=== PATIENT | male | born 1955 | race Caucasian/White ===

== ENCOUNTER → 2016-08-18 | Outpatient (CLI) | payer MEDICARE ==
[~2016-08-18] MED LIST: AMLO10TA2 PO; ARTI99.0 OU; ASPI1TAB PO; BACI500O8 TOP; BLOOKIT XX; CALTTAB5 PO; CLOB0.0548 TOP; ISOS60TA2 PO; KELP100T PO; LANTINJ4 SC; LASI20TA PO; LISI-538 PO; NEO-0.25; NEUR300C PO; OCUVCAP2 PO; POTA10CA PO; VITA400C2 PO; [UNRECOGNIZED DRUG - CODE] TOP
[2016-08-18 11:39] LABS: ALBUMIN/GLOBULIN RATIO 1.07 (1.00-1.93); BILIRUBIN,TOTAL 0.3 MG/DL (0.2-1.0); CALCIUM LEVEL 7.7 MG/DL (8.8-10.2); CREATININE FOR GFR 1.84 MG/DL (0.70-1.30); GLOMERULAR FILTRATION RATE 40.1 (>49); POTASSIUM SERUM 4.2 MEQ/L (3.5-5.1); TOTAL PROTEIN 5.8 GM/DL (6.4-8.2)
--- NOTE | 2016-08-18 14:44 | REP ---
Three-view left knee to include AP lateral and sunrise views 08/18/2016 Indication: Pain The joint spaces are well maintained. There is no acute fracture, subluxation, or dislocation, and no evidence of joint effusion. There is a small spur at the quadriceps tendinous insertion on the patella. Impression: No acute fracture. Small spur at the quadriceps tendinous insertion on the patella. Signed by Lucila Lacey MD 08/18/2016 02:36 P
== END ==
LOC: M LAB 10:50
PROVIDERS: ATTEND Family Medicine Addiction Medicine
DX: M25.562 Pain in left knee (principal)

== ENCOUNTER → 2016-09-16 | Outpatient (CLI) | payer MEDICARE ==
--- NOTE | 2016-09-18 06:32 | SLEEPCENT ---
DATE OF PROCEDURE: 09/16/2016 ORDERED BY: Yohana Soares Nocturnal polysomnography was performed due to concern for the obstructive sleep apnea syndrome in this patient with a history of excessive somnolence and comorbidities of hypertension and diabetes. 8 hours and 50 minutes of data were reviewed. There were 326 minutes of sleep identified. Sleep latency was normal at 8 minutes. Rapid eye movement (REM) latency was normal at 74 minutes. Sleep architecture showed fragmentation. Reasonable sleep progression occurred with 4 REM periods. Overall sleep efficiency was 70%. The patient's electrocardiogram (EKG) showed a sinus rhythm with an average heart rate of 64 beats per minute. Heart rate variability was seen surrounding respiratory events. Rate ranged 58 to 78. Electroencephalogram (EEG) showed normal waveforms for awake and for sleep stages. There were no focal events identified. There were 142 respiratory events identified of 10 seconds in duration or greater for an apnea-hypopnea index of 23.2. The events were primarily obstructive, not exclusive to sleep stage nor body posture. Arousals from respiratory events occurred 20.4 times per hour and oxygen desaturations were seen into the upper 70s. There was some limb activity, but no arousals from limb events were noted. Remaining measures of sleep physiology were normal. IMPRESSION: Obstructive sleep apnea syndrome (G47.33), apnea-hypopnea index 23.2. RECOMMENDATION: The patient should be encouraged to return to the sleep disorder center for pressure therapy. In the interim, alcohol and sedative avoidance should be practiced and caution exercised during the operation of motor vehicles.
== END ==
LOC: M SLEEP 18:26
PROVIDERS: ATTEND Nurse Practitioner Adult Health
DX: G47.30 Sleep apnea, unspecified (principal)

== ENCOUNTER → 2016-09-24 | Outpatient (CLI) | payer MEDICARE ==
[2016-09-24 13:46] LABS: ALBUMIN 3.1 GM/DL (3.2-5.2); ALBUMIN/GLOBULIN RATIO 0.97 (1.00-1.93); BILIRUBIN,TOTAL 0.3 MG/DL (0.2-1.0); CALCIUM LEVEL 8.1 MG/DL (8.8-10.2); CREATININE FOR GFR 2.11 MG/DL (0.70-1.30); GLOMERULAR FILTRATION RATE 34.3 (>49); POTASSIUM SERUM 4.6 MEQ/L (3.5-5.1); TOTAL PROTEIN 6.3 GM/DL (6.4-8.2)
== END ==
LOC: M LAB 12:05
PROVIDERS: ATTEND Family Medicine Addiction Medicine
DX: N18.9 Chronic kidney disease, unspecified (principal)

== ENCOUNTER → 2016-10-11 | Outpatient (CLI) | payer MEDICARE ==
[~2016-10-11] MED LIST changes: +METO-209 PO
== END ==
LOC: M SLEEP 19:45
PROVIDERS: ATTEND Nurse Practitioner Adult Health
DX: G47.33 Obstructive sleep apnea (adult) (pediatric) (principal)

== ENCOUNTER 2016-10-13 13:32 | Emergency (ER) | payer MEDICARE ==
[~2016-10-13] VITALS: Ht 172.7 cm; Wt 95.7 kg
[~2016-10-13 13:32] MED LIST changes: -METO-209 PO
[2016-10-13] MEDS ORDERED: ASPIRIN 81 MG CHEW TABLET PO ONE (14:00)
[2016-10-13] MEDS ORDERED: METO-209 PO (14:02)
[2016-10-13 14:26] LABS: BASO % 0.6 % (0.0-1.0); EOS # 0.1 K/mm3 (0.0-0.50); EOS % 2.2 % (0.0-3.0); LARGE UNSTAINED CELL # 0.1 K/mm3 (0.0-0.4); LARGE UNSTAINED CELL % 1.7 % (0.0-4.0); LYMPH # 1.7 K/mm3 (1.5-4.5); LYMPH % 29.3 % (24.0-44.0); MEAN CORPUSCULAR HEMOGLOBIN 27.6 pg (27.0-33.0); MEAN CORPUSCULAR HGB CONC 34.2 g/dl (32.0-36.5); MEAN CORPUSCULAR VOLUME 80.6 fl (80.0-96.0); MONO # 0.3 K/mm3 (0.0-0.8); MONO % 5.9 % (0.0-5.0); NEUTROPHILS # 3.3 K/mm3 (1.8-7.7); NEUTROPHILS % 60.2 % (36.0-66.0); PLATELET COUNT, AUTOMATED 155 k/mm3 (150-450); RED CELL DISTRIBUTION WIDTH 14.5 % (11.5-14.5); WHITE BLOOD COUNT 5.5 K/mm3 (4.0-10.0)
[2016-10-13 15:04] LABS: ANION GAP 8 MEQ/L (8-16); BLOOD UREA NITROGEN 26 MG/DL (7-18); CALCIUM LEVEL 7.6 MG/DL (8.8-10.2); CARBON DIOXIDE LEVEL 26 MEQ/L (21-32); CHLORIDE LEVEL 105 MEQ/L (98-107); CREATININE FOR GFR 1.98 MG/DL (0.70-1.30); GLOMERULAR FILTRATION RATE 36.9 (>49); GLUCOSE, FASTING 393 MG/DL (80-110); POTASSIUM SERUM 4.7 MEQ/L (3.5-5.1); SODIUM LEVEL 139 MEQ/L (136-145)
--- NOTE | 2016-10-13 15:04 | REP ---
PORTABLE CHEST X-RAY: SINGLE VIEW. HISTORY: Chest pain. COMPARISON STUDY: June 28, 2016 FINDINGS: EKG monitoring electrodes overlie the chest. The lungs are well inflated and clear. The pleural angles are sharp. Heart size is normal. The aorta is slightly tortuous as before. Pulmonary vasculature is not increased. IMPRESSION: No active disease. Signed by Berto Mohr MD 10/13/2016 03:22 P
[2016-10-13 16:58] VITALS: BP 195/97
--- NOTE | 2016-10-14 11:03 | ECGEPIP ---
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
== END 2016-10-13 17:02 | disposition home or self-care (01) ==
LOC: M ED 16:07
DX: R07.9 Chest pain, unspecified (principal)

== ENCOUNTER → 2016-10-23 | Outpatient (REF) | payer MEDICARE ==
[~2016-10-23] MED LIST changes: +METO-209 PO
[2016-10-23 14:24] LABS: RBC, URINE 0-1 /hpf (0-3); SQUAMOUS EPITHELIAL CELL URINE SMALL AMOUNT /hpf (SMALL AMT)
[2016-10-23 14:25] LABS: BACTERIA, URINE SMALL AMOUNT
[2016-10-23 14:26] LABS: MICROSCOPIC EXAM PERFORMED
[2016-10-23 14:37] LABS: PERCENT SATURATION 9.2 % (19.7-37.4)
== END ==
LOC: M LAB REF 13:03
PROVIDERS: ATTEND Internal Medicine Nephrology
DX: R80.9 Proteinuria, unspecified (principal); D64.9 Anemia, unspecified

== ENCOUNTER 2017-01-06 12:52 | Inpatient (IN) | payer OTHER, MEDICARE ==
[2017-01-06] VITALS (11 sets, daily range): BP systolic 129–166; BP diastolic 65–91
[~2017-01-06] VITALS: Ht 172.7 cm; Wt 94.5 kg
[2017-01-06] MEDS ORDERED: FLOM5CAP PO (13:09)
[2017-01-06] MEDS ORDERED: CHLO125TA PO (13:09)
[2017-01-06] MEDS ORDERED: CLOP75TA2 PO (13:09)
[2017-01-06] MEDS ORDERED: ATOR1TAB21 PO (13:09)
[2017-01-06 13:41] LABS: BASO % 0.4 % (0.0-1.0); EOS # 0.2 K/mm3 (0.0-0.50); EOS % 2.1 % (0.0-3.0); LARGE UNSTAINED CELL # 0.1 K/mm3 (0.0-0.4); LARGE UNSTAINED CELL % 1.5 % (0.0-4.0); LYMPH # 1.4 K/mm3 (1.5-4.5); MEAN CORPUSCULAR HEMOGLOBIN 27.2 pg (27.0-33.0); MEAN CORPUSCULAR HGB CONC 33.4 g/dl (32.0-36.5); MEAN CORPUSCULAR VOLUME 81.5 fl (80.0-96.0); MONO # 0.3 K/mm3 (0.0-0.8); MONO % 4.4 % (0.0-5.0); NEUTROPHILS # 5.2 K/mm3 (1.8-7.7); NEUTROPHILS % 72.5 % (36.0-66.0); PLATELET COUNT, AUTOMATED 222 k/mm3 (150-450); RED CELL DISTRIBUTION WIDTH 13.7 % (11.5-14.5); WHITE BLOOD COUNT 7.1 K/mm3 (4.0-10.0)
[2017-01-06 14:01] LABS: ALBUMIN 3.1 GM/DL (3.2-5.2); ALBUMIN/GLOBULIN RATIO 0.79 (1.00-1.93); ALKALINE PHOSPHATASE 90 U/L (45-117); ALT/SGPT 21 U/L (12-78); ANION GAP 5 MEQ/L (8-16); AST/SGOT 14 U/L (15-37); BILIRUBIN,DIRECT < 0.1 MG/DL (0.0-0.2); BILIRUBIN,TOTAL 0.5 MG/DL (0.2-1.0); BLOOD UREA NITROGEN 31 MG/DL (7-18); CALCIUM LEVEL 8.8 MG/DL (8.8-10.2); CARBON DIOXIDE LEVEL 30 MEQ/L (21-32); CHLORIDE LEVEL 100 MEQ/L (98-107); CREATININE FOR GFR 2.55 MG/DL (0.70-1.30); GLOMERULAR FILTRATION RATE 27.5 (>49); GLUCOSE, FASTING 319 MG/DL (80-110); POTASSIUM SERUM 4.5 MEQ/L (3.5-5.1); SODIUM LEVEL 135 MEQ/L (136-145)
--- NOTE | 2017-01-06 14:07 | REP ---
Chest one-view HISTORY: Chest pain Comparison: 10/13/2016 The lungs are clear. The heart is normal in size. The pulmonary vasculature is normal in appearance. Impression: No acute disease. Signed by Beto Xiao MD 01/06/2017 01:58 P
[2017-01-06 14:23] LABS: FERRITIN 6 NG/ML (26-388); PERCENT SATURATION 4.7 % (19.7-37.4); TOTAL IRON BINDING CAPACITY 467 UG/DL (250-450)
[2017-01-06] MEDS ORDERED: NS 1,000 ML IV SCH (15:26)
[2017-01-06] MEDS ORDERED: ONDANSETRON 4 MG TAB (S0181) PO PRN (15:30)
[2017-01-06] MEDS ORDERED: GLUCAGON FOR INJ 1 MG VIAL (J1610) SC PRN (15:30)
[2017-01-06] MEDS ORDERED: PERCOCET 5MG/325MG TAB PO PRN (15:30)
[2017-01-06] MEDS ORDERED: DEXTROSE 50% 50 ML SYRINGE IV PRN (15:30)
[2017-01-06] MEDS ORDERED: ACETAMINOPHEN TAB 650MG DOSE (2X325MG) PO PRN (15:30)
[2017-01-06] MEDS ORDERED: ONDANSETRON 4MG/2ML VIAL (J2405) IV PRN (15:30)
[2017-01-06] MEDS ORDERED: GLUCOSE 4 GM CHEW TABLET PO PRN (15:30)
[2017-01-06] MEDS ORDERED: NITR4TASL SL (15:51)
[2017-01-06] MEDS ORDERED: METO-207 PO (15:51)
[2017-01-06] MEDS ORDERED: INSULANT SC (15:51)
[2017-01-06 16:04] LABS: INR 1.03
--- NOTE | 2017-01-06 17:29 | HPEPDOC ---
Medical History and Physical Date of Admission January 06, 2017 at 15:26 History and Physical HISTORY AND PHYSICAL Date of admission: 01/06/2017 PCP: [facility] Administration Chief complaint: Taking a deep breath makes me feel strain and heaviness in my chest all the way from my throat down to my belly HPI: 61-year-old male with obesity, coronary artery disease status post recent drug-eluting stents, CK D stage III, diabetes mellitus type 2 with neuropathy, lung nodules who presents to the emergency department because he feels a strain and a heaviness in his entire thoracic and abdominal cavity when he takes a deep breath. He states that this actually began in June, but it's been getting worse. He states that he had 2 drug-eluting stents placed at [facility] in November, and since then, many uncomfortable symptoms including dyspnea on exertion and fatigue have improved. However, this has not improved. He states that he does not currently have any pressure in his chest. He also denies seeing any blood. In the emergency department, he is noted to be anemic, but a guaiac test is negative. He states that he thinks his last colonoscopy was in 2009, and he remembers that they found hemorrhoids, but he is unsure if they found anything else. Past medical history: obesity, coronary artery disease status post recent drug- eluting stents, CK D stage III, diabetes mellitus type 2 with neuropathy, lung nodules Past surgical history: Hernia repair, hydrocele repair, bilateral corneal lens implantations, recent drug-eluting stents placed in November 2016 Family history: Diabetes mellitus, coronary artery disease, hypertension Social history: Patient currently drinks 1-2 alcoholic beverages weekly. He denies any drug or tobacco use. Allergies: Generic gabapentin, gemfibrozil, lisinopril, metformin Review of systems: General: Positive for chills, negative for fever Eyes: Positive for blurry vision when he eats, negative for ocular discharge ENT: Negative for sore throat and nose. Cardiovascular: Negative for chest pain currently, as well as palpitations. He does report the above-mentioned strain and heaviness in his chest and abdomen when he takes deep breaths Respiratory: Positive for cough and shortness of breath GI: Negative for nausea, vomiting. Positive for diarrhea. Negative for any blood in the stool. Musculoskeletal: Positive for neck and back pain Skin: Negative For rash Neuro: Negative for headache. Positive for dizziness when he takes his nightly metoprolol. Positive for chronic numbness and tingling associated with his neuropathy. Psych: Negative for depression and suicidal ideation Endocrine: Positive for polyuria : Negative For dysuria Heme: Negative for bleeding Home meds: See below Physical exam: Vital signs: Vital Sign - Last 24 Hours 01/06/17 01/06/17 01/06/17 01/06/17 12:52 13:51 16:00 16:14 Temp 98.6 97.2 97.7 Pulse 83 75 65 Resp 20 18 18 B/P (MAP) 105/69 (81) 152/91 (111) 140/75 (96) Pulse Ox 100 98 98 O2 Delivery Room Air Room Air Room Air Gen.: awake, alert, no acute distress, very pale Eyes: Extraocular movements intact, normal sclera ENT: Moist mucous membranes Cardiovascular: RRR, no murmurs rubs or gallops Lungs: clear to auscultation bilaterally, no rales, rhonchi, or wheeze Abdomen: Soft, NT/ND, normal BS Musculoskeletal: normal range of motion Extremities: No peripheral edema Neuro: alert and oriented 3, normal speech, no focal deficits Psych: Normal mood with congruent affect Labs and radiology: See below Creatinine 2.55 Hemoglobin 7.8 Troponin 0.24 Iron studies are consistent with iron deficiency BMP is within normal limits Chest x-ray is unremarkable EKG does not have any evidence of acute infarct or ischemia and is normal sinus rhythm Assessment and plan: 61-year-old male with obesity, coronary artery disease status post recent drug- eluting stents, CK D stage III, diabetes mellitus type 2 with neuropathy, lung nodules who presents to the emergency department because he feels a strain and a heaviness in his entire thoracic and abdominal cavity when he takes a deep breath. He is admitted with symptomatic anemia. 1. Symptomatic anemia: The patient's baseline hemoglobin appears to be closer to 10. Given that he does have coronary artery disease, he would benefit from having a hemoglobin closer to 10. 1 unit of PRBCs has been ordered in the ER, and I'll order second unit. We also will check a fecal occult blood. I suspect that since the patient was started on Plavix and aspirin after his drug-eluting stents several weeks ago, he is likely having a slow bleed. Unfortunately, as these stents are so fresh, I do not feel it is safe to stop the aspirin and Plavix at this time. Seeing as his iron studies are consistent with iron deficiency anemia, we will also start the patient on ferrous sulfate. 2. Elevated troponin: The patient does not currently have any chest pain and his EKG is unremarkable. I suspect that this may be some demand ischemia and strain secondary to his anemia in the setting of coronary artery disease. We will continue to trend his troponin and monitor him on telemetry. 3. Acute on chronic kidney disease stage III: The patient's baseline creatinine appears to be closer to the mid to upper ones. His creatinine upon arrival is 2.55, and I suspect this is secondary to his volume loss from the bleed. We'll transfuse him 2 units of PRBCs and recheck his creatinine in the morning. 4. Coronary artery disease status post recent drug-eluting stents: Seeing as these stents have been placed within the last 2 months, I feel it is important to continue the aspirin and Plavix. We'll also continue the patient on the statin and beta corby. He does not currently have any chest pain. 5. Diabetes mellitus type 2 with neuropathy: We'll continue the patient on his home a.m. and nightly Lantus. We also will continue his Neurontin. We will use sliding scale insulin while he is in-house. 6. Lung nodules: The patient states that these were discovered by his primary physician at the [facility], and that the [facility] is currently working on getting him set up with a network systems consultant. DVT prophylaxis: SCDs Dispo: admit as an inpatient to the service of Dr. Contreras CODE STATUS: Full code Vital Signs Vital Signs Date Time Temp Pulse Resp B/P (MAP) Pulse Ox O2 Delivery O2 Flow Rate FiO2 01/06/17 16:14 97.7 65 18 140/75 (96) 98 Room Air Laboratory Data Labs 24H Laboratory Tests 2 01/06/17 13:21: White Blood Count 7.1, Red Blood Count 2.88L, Hemoglobin 7.8L, Hematocrit 23.4L , Mean Corpuscular Volume 81.5, Mean Corpuscular Hemoglobin 27.2, Mean Corpuscular Hemoglobin Concent 33.4, Red Cell Distribution Width 13.7, Platelet Count 222, Neutrophils (%) (Auto) 72.5H, Lymphocytes (%) (Auto) 19.0L, Monocytes (%) (Auto) 4.4, Eosinophils (%) (Auto) 2.1, Basophils (%) (Auto) 0.4, Neutrophils # (Auto) 5.2, Lymphocytes # (Auto) 1.4L, Monocytes # (Auto) 0.3, Eosinophils # (Auto) 0.2, Basophils # (Auto) 0.0, Large Unclassified Cells % 1.5 , Large Unclassified Cells # 0.1, Prothrombin Time 13.6, Prothromb Time International Ratio 1.03, Anion Gap 5L, Glomerular Filtration Rate 27.5L, Calcium Level 8.8, Iron Level 22L, Total Iron Binding Capacity 467H, Transferrin % Saturation 4.7L, Ferritin 6L, Aspartate Amino Transf (AST/SGOT) 14L, Alanine Aminotransferase (ALT/SGPT) 21, Alkaline Phosphatase 90, Total Bilirubin 0.5, Direct Bilirubin < 0.1, Total Creatine Kinase 285, Creatine Kinase MB 6.8H, Creatine Kinase MB Relative Index 2.38, Troponin I 0.24H, C- Reactive Protein, Quantitative < 0.30, B-Type Natriuretic Peptide 96.6, Total Protein 7.0, Albumin 3.1L, Albumin/Globulin Ratio 0.79L, Thyroid Stimulating Hormone (TSH) 1.660 CBC/BMP Laboratory Tests 01/06/17 13:21 Red Blood Count 2.88 L, Mean Corpuscular Volume 81.5, Mean Corpuscular Hemoglobin 27.2, Mean Corpuscular Hemoglobin Concent 33.4, Red Cell Distribution Width 13.7, Neutrophils (%) (Auto) 72.5 H, Lymphocytes (%) (Auto) 19.0 L, Monocytes (%) (Auto) 4.4, Eosinophils (%) (Auto) 2.1, Basophils (%) ( Auto) 0.4, Neutrophils # (Auto) 5.2, Lymphocytes # (Auto) 1.4 L, Monocytes # ( Auto) 0.3, Eosinophils # (Auto) 0.2, Basophils # (Auto) 0.0 Home Medications Scheduled Aspirin (Aspirin 81) 81 Mg Tab, 81 MG PO DAILY Atorvastatin Calcium (Atorvastatin Calcium) 20 Mg Tab, 20 MG PO DAILY Clopidogrel Bisulfate (Clopidogrel) 75 Mg Tab, 75 MG PO DAILY Gabapentin (Neurontin) 300 Mg Cap, 300 MG PO BID TAKES BRAND NAME ONLY Insulin Glargine (Lantus Solostar) 100 Unit/Ml Inj, 80 UNITS SC QHS PT USED THIS MORNING DUE TO HIGH SUGAR LEVEL Insulin Glargine (Lantus) 1 Units/0.01 Ml Susp, 10 UNITS SC QAM Metoprolol Succinate (Metoprolol Succinate ER) 50 Mg Tab, 50 MG PO QHS Tamsulosin Hydrochloride (Flomax) 0.4 Mg Cap, 0.4 MG PO DAILY Vitamin E (Vitamin E) 400 Unit Cap, 1,200 UNIT PO DAILY Scheduled PRN Nitroglycerin (Nitrostat) 0.4 Mg Subl, 0.4 MG SL Q5MP PRN for CHEST PAIN Allergies Coded Allergies: Lisinopril (Unverified Allergy, Severe, ANGIOEDEMA, 07/09/16) Gabapentin (Unverified Allergy, Unknown, GENERIC CAUSES APHASIA, 06/28/16) Gemfibrozil (Unverified Adverse Reaction, Unknown, "RED SPOTS", 05/19/16) Metformin (Unverified Adverse Reaction, Unknown, "DIARRHEA", 05/19/16) MAXIMO ROGERS January 06, 2017 17:29
[2017-01-06] MEDS: HumaLOG INSULIN (NovoLOG) PER UNIT SC SCH (18:04)
[2017-01-06] MEDS ORDERED: NON-FORMULARY 1 EA EA PO SCH (21:00)
[2017-01-06] MEDS ORDERED: METOPROLOL SUCC (TopROL XL) 50MG **XL** TAB PO SCH (21:00)
[2017-01-06] MEDS ORDERED: HumaLOG INSULIN (NovoLOG) PER UNIT SC SCH (21:00)
[2017-01-06] MEDS ORDERED: LEVEMIR (INSULIN DETEMIR) 1 UNITS/0.01ML SC SCH (21:00)
[2017-01-06] MEDS ORDERED: SLF 3 ML SYR IV PRN (23:00)
[2017-01-07] VITALS: BP 128/65
[2017-01-07] MEDS: SLF 3 ML SYR IV SCH ×2 (03:40→12:00)
[2017-01-07 04:00] VITALS: BP 128/70
[2017-01-07 05:54] LABS: ADD MORPHOLOGY? YES; BASO % 0.6 % (0.0-1.0); EOS # 0.1 K/mm3 (0.0-0.50); LARGE UNSTAINED CELL # 0.1 K/mm3 (0.0-0.4); LYMPH # 1.7 K/mm3 (1.5-4.5); LYMPH % 22.3 % (24.0-44.0); MEAN CORPUSCULAR HEMOGLOBIN 27.2 pg (27.0-33.0); MEAN CORPUSCULAR HGB CONC 33.1 g/dl (32.0-36.5); MEAN CORPUSCULAR VOLUME 82.2 fl (80.0-96.0); MONO # 0.4 K/mm3 (0.0-0.8); MONO % 5.9 % (0.0-5.0); NEUTROPHILS # 4.6 K/mm3 (1.8-7.7); NEUTROPHILS % 67.3 % (36.0-66.0); PLATELET COUNT, AUTOMATED 169 k/mm3 (150-450); WHITE BLOOD COUNT 6.9 K/mm3 (4.0-10.0)
[2017-01-07 05:59] LABS: ALBUMIN/GLOBULIN RATIO 0.88 (1.00-1.93); BILIRUBIN,TOTAL 0.9 MG/DL (0.2-1.0); CALCIUM LEVEL 8.3 MG/DL (8.8-10.2); CREATININE FOR GFR 2.18 MG/DL (0.70-1.30); GLOMERULAR FILTRATION RATE 32.9 (>49); POTASSIUM SERUM 4.1 MEQ/L (3.5-5.1); TOTAL PROTEIN 6.4 GM/DL (6.4-8.2)
[2017-01-07 06:28] LABS: ANISOCYTOSIS 2+
[2017-01-07 08:00] VITALS: BP 133/74
[2017-01-07] MEDS: HumaLOG INSULIN (NovoLOG) PER UNIT SC SCH ×2 (08:02→11:53)
--- NOTE | 2017-01-07 08:49 | ECGEPIP ---
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 INFERIOR INFARCT, OLD PROLONGED QTC DECREASED RATE 10/13/16 Electronically Signed On 01-07-2017 8:48:59 EDT by Nerissa Law
[2017-01-07] MEDS ORDERED: VITAMIN E 400 INTERNATIONAL UNITS CAP PO SCH (09:00)
[2017-01-07] MEDS ORDERED: TAMSULOSIN 0.4 MG CAP PO SCH (09:00)
[2017-01-07] MEDS ORDERED: FERROUS SULFATE 325MG TAB PO SCH (09:00)
[2017-01-07] MEDS ORDERED: ATORVASTATIN 20 MG TAB PO SCH (09:00)
[2017-01-07] MEDS ORDERED: LEVEMIR (INSULIN DETEMIR) 1 UNITS/0.01ML SC SCH (09:00)
[2017-01-07] MEDS ORDERED: ASPIRIN 81 MG ENTERIC TAB PO SCH (09:00)
[2017-01-07] MEDS ORDERED: CLOPIDOGREL 75 MG TAB PO SCH (09:00)
[2017-01-07] MEDS ORDERED: PANTOPRAZOLE 40MG TAB (PROTONIX) PO SCH (09:00)
--- NOTE | 2017-01-07 09:45 | REP ---
CT CHEST WITHOUT IV CONTRAST: CT chest is performed without IV contrast. Sagittal and coronal reconstruction images are performed. There are scattered interstitial fibrotic changes throughout both lungs. Tiny calcified granuloma is seen in the right upper lobe as well as in the left upper lobe. No suspicious nodular opacities are seen bilaterally and there is no evidence of acute infiltrate. There is no pleural or pericardial effusion. The thoracic aorta demonstrates ectasia of the ascending portion 4.2 cm in AP dimension. This is unchanged. The heart is normal in size. No adenopathy is seen. Normal size mediastinal lymph nodes are present. The visualized upper abdominal structures are unremarkable. IMPRESSION: Mild scattered fibrotic changes. Tiny calcified granuloma is seen in each lung. No suspicious nodular opacity or infiltrate. Signed by Yasmany Vergara MD 01/07/2017 07:09 P
[2017-01-07] MEDS ORDERED: SUCR1TA PO (10:40)
[2017-01-07] MEDS ORDERED: MAALSUS20 PO (10:40)
[2017-01-07] MEDS ORDERED: PROT1TAB2 PO (10:40)
[2017-01-07 12:41] VITALS: BP 155/85
--- NOTE | 2017-01-07 13:31 | DSES ---
DATE OF ADMISSION: 01/06/2017 DATE OF DISCHARGE: 01/07/2017 (transferred to [facility] in [place]) VISUAL SUPERVISOR: Antonio Daniel MD STILL RUNNER: Dr. Sauceda, [facility] PRIMARY CARE PHYSICIAN: [facility] REASON FOR TRANSFER: Gastroenterology referral for EGD due to symptomatic anemia, black tarry stools requiring blood transfusions with presenting hemoglobin of 7.8, requiring 3 units of red blood cell transfusion. PRIMARY DISCHARGE DIAGNOSES: 1. Symptomatic anemia requiring 3 units of red blood cell transfusion. 2. Demand mediated ischemia with positive Troponin, 0.24 and 0.27 as peak level. 3. Chronic kidney disease, baseline creatinine is 1.9. 4. Recent history of stent placement two months ago with drug eluting stent on chronic aspirin and Plavix. 5. Anemia, most likely secondary to gastrointestinal (GI) bleed. DISCHARGE MEDICATIONS: - aspirin 81 mg daily - Plavix 75 mg daily - Lipitor 20 mg daily - ferrous sulfate 325 mg by mouth three times a day - Protonix 40 mg daily - Carafate 1 gram every 6 hours - Levemir insulin 80 units subcu at bedtime, 10 units subcu every morning - Flomax 0.4 mg daily - vitamin E 1200 units daily - metoprolol succinate XL 60 mg at bedtime - Percocet one tablet every 4 hours as needed for pain - Zofran 4 mg every 6 hours as needed for nausea - hypoglycemic protocol HOSPITAL COURSE: This is a 61-year-old male with a history of coronary artery disease status post drug eluting stents two months ago on chronic aspirin an Plavix, done by Dr. Sauceda at [facility] in [place], chronic kidney disease stage 3, diabetes, hypertension, and lung nodules, who presented to the emergency room with complaints of worsening chest heaviness in the entire thoracic abdominal cavity with dysphagia to liquids. The patient has been having black stools, thought to be secondary to iron supplementation. Denies any bright red blood per rectum. Previous colonoscopy was 2010 with hemorrhoids. No complaints of a prior history of peptic ulcer disease, gastritis. No history of heavy alcohol abuse. The patient describes the pain as heaviness and strain from the throat to the umbilicus with no radiation, accompanied with some dyspnea on exertion and fatigue. The patient was found to be anemic. Baseline hemoglobin of 11 and current hemoglobin of 7.8 and hematocrit of 23. Stool guaiac was negative. Patient was transfused 3 units of red blood cells. After 2 units of red blood cell transfusion, the patient's hemoglobin was documented at 9.0, hematocrit of 27. Baseline creatinine is 1.98 and on arrival his creatinine was 2.55, most likely secondary to volume loss from the bleed. He had two bowel movements, which were nonbloody, brown in color during the hospital stay. Documentation of heme negative stool. Vitals remained stable. Systolic pressure 120-156. He was continued on all his home medications with the addition of Protonix and Carafate. Due to severe symptomatic anemia requiring blood transfusion and chronic need for aspirin and Plavix for 12 months due to recent drug eluting stent placed two months ago, the patient was transferred to the [facility] in [place] for gastroenterology referral for EGD, colonoscopy if needed to stabilize possible GI bleed in order to continue with his anticoagulation. Per Dr. Sauceda, professor of kinesiology at [facility] in [place], the patient is to continue the aspirin and Plavix despite bleeding as the coronary vessels were the equivalent of the left main and the patient would restenose and may develop and myocardial infarction (DC) if this is discontinued. During the hospital stay, the patient complained of sinus congestion, rhinorrhea without fever or chills. He also complained of a chronic bone spur on the left knee. He is transferred emergently for a GI referral for stabilization of possible GI bleed with severe symptomatic anemia, hemoglobin of 7 with a baseline of 11. His cardiac markers remained stable. Repeat EKG was unremarkable without T wave inversions, ST depression on two occasions. PHYSICAL EXAMINATION ON DISCHARGE: Temperature 97.3, pulse 72, respiratory rate 18, blood pressure 133/74, 96% on room air. GENERAL: Patient is awake, alert and oriented times three, answering questions appropriately. No jugular venous distention (JVD) or thyromegaly. Dry mucous membranes. No cervical lymphadenopathy. No pharyngeal erythema. Lungs are diminished but clear to auscultation. No wheezing, rales or rhonchi. Heart S1 and S2, sinus rhythm. No murmurs, rubs or gallops. Abdomen is obese, soft, nontender, nondistended. Positive bowel sounds times four quadrants. No hepatosplenomegaly. Extremities patient has no cyanosis, clubbing or any pitting edema. LABORATORY DATA ON DISCHARGE: White count 6.9, hemoglobin 9, hematocrit 27, platelet count 169, 67% neutrophils, 22% lymphocytes, iron of 22. TIBC 267, ferritin 6. Sodium 140, potassium 4.1, chloride 106, bicarb 27, BUN 29, creatinine 2.19, glucose of 126, AST 11, ALT 17, alkaline phosphatase 88, total CK 210, MB fraction 4.0, relative index 1.9, Troponin 0.27, albumin of 3.0, TSH of 1.660. Hemoccult stool on 01/06/2017 was negative. IMAGING STUDIES: Chest CT to evaluate a lung nodule shows mild scattered fibrotic changes, tiny calcified granuloma is seen in each lung. No suspicious nodular opacity or infiltrate. Time spent on discharge: 45 minutes.
--- NOTE | 2017-01-07 20:51 | ECGEPIP ---
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
== END 2017-01-07 14:00 | disposition short-term general hospital (02) | DRG 813 ==
LOC: M ED 13:53 → M ED INP 15:26 → M PCU 16:20
PROVIDERS: ADMIT Hospitalist; ATTEND General Practice
PROC: 30233N1 Transfusion of Nonautologous Red Blood Cells into Peripheral Vein, Percutaneous Approach (ICD-10-PCS; principal; 2017-01-06)
DX: D68.32 Hemorrhagic disorder due to extrinsic circulating anticoagulants (principal); N17.9 Acute kidney failure, unspecified; I24.8 Other forms of acute ischemic heart disease; N18.3 Chronic kidney disease, stage 3 (moderate); Z79.82 Long term (current) use of aspirin; Z79.899 Other long term (current) drug therapy; I25.10 Atherosclerotic heart disease of native coronary artery without angina pectoris; R91.8 Other nonspecific abnormal finding of lung field; I12.9 Hypertensive chronic kidney disease with stage 1 through stage 4 chronic kidney disease, or unspecified chronic kidney disease; E11.40 Type 2 diabetes mellitus with diabetic neuropathy, unspecified; E66.9 Obesity, unspecified; Z79.4 Long term (current) use of insulin

== ENCOUNTER → 2017-01-28 | Outpatient (REF) | payer OTHER, MEDICARE ==
[~2017-01-28] MED LIST changes: +ATOR1TAB21 PO; +CHLO125TA PO; +CLOP75TA2 PO; +FLOM5CAP PO; +INSULANT SC; +MAALSUS20 PO; +METO-207 PO; +NITR4TASL SL; +PROT1TAB2 PO; +SUCR1TA PO
[2017-01-28 15:28] LABS: PERCENT SATURATION 50.7 % (19.7-37.4)
== END ==
LOC: M LAB REF 12:55
PROVIDERS: ATTEND Internal Medicine Nephrology
DX: D50.9 Iron deficiency anemia, unspecified (principal)

== ENCOUNTER 2017-03-04 10:03 | Outpatient (RCR) | payer MEDICARE, MEDICAID ==
[~2017-03-04 10:03] MED LIST changes: -METO-207 PO; -METO-209 PO; +METO1TAB33 PO; +METO1TAB7 PO; -VITA400C2 PO; +VITA400C7 PO
== END 2017-03-08 ==
LOC: M PT 10:03
PROVIDERS: ATTEND Family Medicine Addiction Medicine
DX: M25.562 Pain in left knee (principal)
CPT/HCPCS: 97110; 97162; G8978; G8979

== ENCOUNTER 2017-03-18 11:45 | Outpatient (RCR) | payer MEDICARE, MEDICAID | END 2017-04-08 | disposition home or self-care (01) | LOC: M PT 11:45 | PROVIDERS: ATTEND Family Medicine Addiction Medicine | DX: Z51.89 Encounter for other specified aftercare (principal); M25.562 Pain in left knee ==

== ENCOUNTER → 2017-05-25 | Outpatient (CLI) | payer MEDICARE, MEDICAID ==
--- NOTE | 2017-05-25 11:01 | PFTRPT ---
Tech: Mildred Tuttle SNOWBOARD INSTRUCTOR Age: 61 Sex: Male Race: Height: 68.00 Inches Weight: 209.00 Lbs BSA: 2.08 Diagnosis: R91.8 PULMONARY FUNCTION REPORT ORDERING PROVIDER: Tera Neal D.O. DATE OF SERVICE: 05/25/17/ SPIROMETRY: Pre and post bronchodilator study of excellent technical quality. The forced vital capacity is reduced. The FEV1 is in proportion. The obstructive index is, therefore, normal. FLOW VOLUME LOOP: The expiratory limb of the flow volume loop does suggest combined dysfunction. Borderline bronchodilator response is identified. LUNG VOLUMES: The total lung capacity is mildly reduced. The residual volume suggests air trapping. DIFFUSION CAPACITY: The diffusion capacity, although reduced, is appropriate for alveolar volume. HEMOGLOBIN: The hemoglobin is acceptable at 12.2. AIRWAY MECHANICS: Airways resistance and conductance are normal. IMPRESSION: Mild restrictive ventilatory defect with underlying air trapping and a borderline bronchodilator response with a mild diffusion capacity impairment. Please correlate clinically. MTDD
== END ==
LOC: M CARPUL 09:59
PROVIDERS: ATTEND Internal Medicine Pulmonary Disease
DX: R91.8 Other nonspecific abnormal finding of lung field (principal)

== ENCOUNTER 2017-08-27 09:10 | Emergency (ER) | payer MEDICARE, MEDICAID, OTHER ==
[2017-08-27] MEDS: ASPIRIN 81 MG CHEW TABLET PO (09:42)
[2017-08-27 09:47] LABS: BASO % 0.6 % (0.0-1.0); EOS # 0.3 10^3/uL (0.0-0.50); EOS % 3.8 % (0.0-3.0); HEMATOCRIT 27.1 % (42.0-52.0); HEMOGLOBIN 9.6 g/dl (14.0-18.0); IMMATURE GRANULOCYTE % 0.6 % (0-0); LYMPH # 1.1 10^3/uL (1.5-4.5); LYMPH % 15.6 % (24.0-44.0); MEAN CORPUSCULAR HEMOGLOBIN 29.4 pg (27.0-33.0); MEAN CORPUSCULAR HGB CONC 35.4 g/dl (32.0-36.5); MEAN CORPUSCULAR VOLUME 83.1 fl (80.0-96.0); MONO # 0.5 10^3/uL (0.0-0.8); MONO % 7.1 % (0.0-5.0); NEUTROPHILS % 72.3 % (36.0-66.0); PLATELET COUNT, AUTOMATED 128 10^3/uL (150-450); RED BLOOD COUNT 3.26 10^6/uL (4.30-6.10); RED CELL DISTRIBUTION WIDTH 13.5 % (11.5-14.5); WHITE BLOOD COUNT 6.9 10^3/uL (4.0-10.0)
[2017-08-27 10:21] LABS: ALBUMIN/GLOBULIN RATIO 0.94 (1.00-1.93); ALKALINE PHOSPHATASE 83 U/L (45-117); ALT/SGPT 18 U/L (12-78); ANION GAP 6 MEQ/L (8-16); AST/SGOT 19 U/L (7-37); BILIRUBIN,DIRECT 0.1 MG/DL (0.0-0.2); BILIRUBIN,TOTAL 0.4 MG/DL (0.2-1.0); BLOOD UREA NITROGEN 26 MG/DL (7-18); CALCIUM LEVEL 7.2 MG/DL (8.8-10.2); CARBON DIOXIDE LEVEL 26 MEQ/L (21-32); CHLORIDE LEVEL 104 MEQ/L (98-107); CPK CREATINE PHOSPHOKINASE 394 U/L (39-308); CREATININE FOR GFR 2.73 MG/DL (0.70-1.30); GLOMERULAR FILTRATION RATE 25.4 (>49); GLUCOSE, FASTING 308 MG/DL (80-110); POTASSIUM SERUM 4.6 MEQ/L (3.5-5.1); SODIUM LEVEL 136 MEQ/L (136-145); TOTAL PROTEIN 6.2 GM/DL (6.4-8.2); TROPONIN I < 0.02 NG/ML (< 0.10)
[2017-08-27 10:27] LABS: CK-MB VALUE MASS 7.3 NG/ML (0.0-3.6); MB/CK RELATIVE INDEX 1.85 (< OR =4); NT-PRO BNP 757 PG/ML (<125)
[2017-08-27 15:01] LABS: CPK CREATINE PHOSPHOKINASE 363 U/L (39-308); MB/CK RELATIVE INDEX 1.65 (< OR =4); TROPONIN I < 0.02 NG/ML (< 0.10)
[2017-08-27 17:36] LABS: CK-MB VALUE MASS 5.6 NG/ML (0.0-3.6); CPK CREATINE PHOSPHOKINASE 340 U/L (39-308); MB/CK RELATIVE INDEX 1.64 (< OR =4); TROPONIN I < 0.02 NG/ML (< 0.10)
== END 2017-08-27 18:08 | disposition home or self-care (01) ==
LOC: M ED 09:10
DX: R07.9 Chest pain, unspecified (principal); R06.02 Shortness of breath; I25.10 Atherosclerotic heart disease of native coronary artery without angina pectoris; R13.10 Dysphagia, unspecified; N28.9 Disorder of kidney and ureter, unspecified; Z87.19 Personal history of other diseases of the digestive system; Z95.5 Presence of coronary angioplasty implant and graft; Z82.49 Family history of ischemic heart disease and other diseases of the circulatory system; Z88.8 Allergy status to other drugs, medicaments and biological substances; Z79.899 Other long term (current) drug therapy; Z79.02 Long term (current) use of antithrombotics/antiplatelets; Z79.4 Long term (current) use of insulin
CPT/HCPCS: 71045

== ENCOUNTER → 2017-11-05 | Outpatient (CLI) | payer MEDICARE, MEDICAID | LOC: M RAD 08:38 | DX: I12.0 Hypertensive chronic kidney disease with stage 5 chronic kidney disease or end stage renal disease (principal); Z01.818 Encounter for other preprocedural examination (principal); N18.6 End stage renal disease | CPT/HCPCS: G0365 ==